=== PATIENT | male | born 1960 | race American Indian/Alaskan Native ===

== ENCOUNTER 2018-03-06 09:33 | Inpatient (IN) | payer MEDICAID ==
[2018-03-06] MEDS ORDERED: Naproxen 500 MG TAB PO STA (10:48)
[2018-03-06] MEDS ORDERED: Naproxen 500 MG TAB PO ONE (11:11)
[2018-03-06 11:50] LABS: BASO % 0.3 % (0.0-2.0); EOS # 0.1 K/uL (0.0-0.7); HEMOGLOBIN 12.2 g/dL (12.0-18.0); LYMPH # 1.2 K/uL (1.0-4.3); LYMPH % 28.2 % (20.0-40.0); MEAN CELL VOLUME 90.2 fl (80.0-94.0); MEAN CORPUSCULAR HEMOGLOBIN 29.1 pg (27.0-31.0); MEAN CORPUSCULAR HGB CONC 32.3 g/dL (33.0-37.0); MEAN PLATELET VOLUME 7.3 fl (7.2-11.7); MONO # 0.4 K/uL (0.0-0.8); MONO % 10.6 % (0.0-10.0); NEUT # 2.4 K/uL (1.8-7.0); NEUT % 57.9 % (50.0-75.0); RBC 4.18 Mil/uL (4.40-5.90); WHITE BLOOD COUNT 4.2 K/uL (4.8-10.8)
[2018-03-06 11:56] LABS: ALT/SGPT 54 U/L (21-72); AST/SGOT 58 U/L (17-59); BLOOD UREA NITROGEN 17 mg/dl (9-20); GFR NON-AFRICAN AMERICAN > 60
--- NOTE | 2018-03-06 12:21 | RAD ---
Date of service: 03/06/2018 HISTORY: Chest pressure COMPARISON: No prior. FINDINGS: LUNGS: No active pulmonary disease. PLEURA: No significant pleural effusion identified, no pneumothorax apparent. CARDIOVASCULAR: No atherosclerotic calcification present Normal. OSSEOUS STRUCTURES: No significant abnormalities. VISUALIZED UPPER ABDOMEN: Normal. OTHER FINDINGS: None. IMPRESSION: No active disease.
[2018-03-06 13:51] LABS: BENZODIAZEPINES, UR NEGATIVE (NEGATIVE); OPIATES, UR NEGATIVE (NEGATIVE)
[2018-03-06 13:52] LABS: BARBITURATES, UR NEGATIVE (NEGATIVE); PHENCYCLIDINE, UR NEGATIVE (NEGATIVE)
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
--- NOTE | 2018-03-06 16:19 | CARD ---
APPROVED REPORT Date of service: 03/06/2018 EKG Measurement Heart [id number] <Conclusion> Normal sinus rhythm Normal ECG
[2018-03-06] MEDS ORDERED: DiphenhydrAMINE 50 mg/ml Inj IM PRN (17:02)
[2018-03-06] MEDS ORDERED: Alum-Mag Hydrox-Simethicone Susp (30 mL) PO PRN (17:02)
[2018-03-06] MEDS ORDERED: Magnesium Hydroxide Susp 30 ml UD PO PRN (17:02)
--- NOTE | 2018-03-06 18:11 | PCM.BM ---
<Viviana Zapata - Last Filed: 03/06/18 18:08> Treatment Plan Problems - Problems identified on initial assessmt Medication nonadherence Date Initiated: 03/06/18 Time Initiated: 18:09 Assessment reference: HP, SW, NA Status: Active Auditory Hallucination Date Initiated: 03/06/18 Time Initiated: 18:10 Assessment reference: HP, SW, NA Status: Active Altered Thought Process Date Initiated: 03/06/18 Time Initiated: 18:12 Assessment reference: HP, SW, NA Status: Active Treatment assets and liabiliti Patient Assests: adapts well, cooperative (Patient is homeless), ADL independent (Patient is homeless) Patient Liabilities: financial problems, poor support system - Milieu Protocol Maintain good personal hygiene: daily Encourage regular showers, daily Remind patient to perform daily oral care, daily Assist patient to perform ADL's Conduct patient checks and document Observation sheet: Q15 minutes Maintain personal safety: every shift Educate patient to report safety concerns to staff, every shift Monitor environment for contraband/sharps Medication safety: Monitor for expected outcome, potential side effects: every shift, Assess barriers to learning: every shift, Assess readiness for medication education: every shift <Reanna Enriquez - Last Filed: 03/07/18 10:35> - Diagnosis (1) Schizophrenia Status: Acute Interventions: Medication management, Individual and group therapy, Psychoeducation 03/07/18 10:35 <Neeraj Rios - Last Filed: 03/08/18 15:27> Family Contact Family involvement: Famliy/SO not involved Family contact: Patient agrees to contact, Family has been contacted by patient, Telephone contact initiated by staff Family contact name: Pt denied. - Goals for Treatment Patient goals for treatment: Pt is too floridly psychotic to participate in treatment planning and discharge. Pt did ask to be referred to group homes as he is currently homeless. Discharge/Continuing Care - Education Needs Education Needs: Patient Medication, Patient Diagnosis/Disease Process, Patient Coping Skills, Patient Community resources, Patient Aftercare Safety Plan - Discharge Discharge Criteria: Tolerates medication w/o severe side effects, Free of paranoid thoughts, Free of agitation, Reduction of target symptoms Discharge to:: Detention - Treatment Team Participation Patient/Family/SO Statement: 03/08/18 15:19 Pt seen and evaluated in treatment team on 03/08/18. Pt presented as paranoid, tangential and disorganized. Pt was difficult to redirect and fixated on the size and shape of pills. Pt reported that his hallucinations have resolved. Pt also complained of pain in his legs and being cold on the unit. Up titration of Risperdal discussed and pt was in agreement. Discussed with Family/SO: No Was Patient/Family/SO present at Treatment Team Meeting: Yes
[2018-03-07 00:27] VITALS: O2SAT 95; BMI 38.7
[2018-03-07 06:18] LABS: BASO % 0.3 % (0.0-2.0); EOS # 0.1 K/uL (0.0-0.7); EOS % 3.3 % (0.0-4.0); HEMOGLOBIN 12.3 g/dL (12.0-18.0); LYMPH # 1.2 K/uL (1.0-4.3); LYMPH % 37.6 % (20.0-40.0); MEAN CELL VOLUME 91.6 fl (80.0-94.0); MEAN CORPUSCULAR HEMOGLOBIN 29.5 pg (27.0-31.0); MEAN CORPUSCULAR HGB CONC 32.2 g/dL (33.0-37.0); MEAN PLATELET VOLUME 7.3 fl (7.2-11.7); MONO # 0.4 K/uL (0.0-0.8); MONO % 12.6 % (0.0-10.0); NEUT # 1.5 K/uL (1.8-7.0); NEUT % 46.2 % (50.0-75.0); NRBC % 0.2 % (0.0-0.0); RBC 4.15 Mil/uL (4.40-5.90); RED CELL DISTRIBUTION WIDTH 15.5 % (11.5-14.5); WHITE BLOOD COUNT 3.2 K/uL (4.8-10.8)
[2018-03-07 06:26] LABS: ALB/GLOB RATIO 0.9 (1.0-2.1); ALBUMIN 3.4 g/dL (3.5-5.0); ALT/SGPT 47 U/L (21-72); AST/SGOT 39 U/L (17-59); BLOOD UREA NITROGEN 19 mg/dl (9-20); CALCIUM 8.6 mg/dL (8.4-10.2); GFR NON-AFRICAN AMERICAN > 60; HDL CHOLESTEROL 33 MG/DL (30-70)
[2018-03-07 06:36] LABS: LDL CHOLESTEROL 64 mg/dL (0-129)
[2018-03-07 06:40] LABS: T4 7.24 ug/dl (5.5-11.0)
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
[2018-03-07 11:27] LABS: SQUAMOUS EPITHIAL 1 /hpf (0-5); URINE BILIRUBIN NEGATIVE (NEGATIVE); URINE BLOOD NEGATIVE (NEGATIVE); URINE CLARITY SLIGHTY-CLOUDY (Clear); URINE COLOR YELLOW (YELLOW); URINE GLUCOSE (UA) NEG (Normal); URINE LEUKOCYTE ESTERASE NEG Leu/uL (Negative); URINE PROTEIN NEGATIVE (NEGATIVE)
[2018-03-07] MEDS: Risperidone M tab 1 MG PO SCH ×2 (11:44→21:13)
--- NOTE | 2018-03-07 14:21 | CP.PCM.CON ---
History of Present Illness - History of Present Illness History of Present Illness: Reason for Consult: Per hospital protocol HPI: 57 year old male with likely history of HTN? admitted to [facility] for schizophrenia, acutely disorganized and psychotic. Unable to obtain information from patient at this time. Discussed with Psychiatry team, and record reviewed. ROS: Per HPI, all other systems reviewed and neg Past Patient History - Past Social History Smoking Status: Light Smoker < 10 Cigarettes Daily - CARDIAC Hx Cardiac Disorders: Yes (HTN) - PULMONARY Hx Respiratory Disorders: No (denies) Hx Tuberculosis: No - NEUROLOGICAL HX Cerebrovascular Accident: No Hx Seizures: No Other/Comment: Pt. denies but states he had surgery to back of head. Does not know why had surgery. - HEENT Hx HEENT Problems: No (denied) - RENAL Hx Chronic Kidney Disease: No (Denied) - ENDOCRINE/METABOLIC Hx Endocrine Disorders: No (denied) - HEMATOLOGICAL/ONCOLOGICAL Hx Blood Disorders: No (denied) Hx Cancer: No Hx Human Immunodeficiency Virus (HIV): No - INTEGUMENTARY Hx Dermatological Problems: Yes Hx Cellulitis: Yes (Nicolás. lower extremities) - MUSCULOSKELETAL/RHEUMATOLOGICAL Hx Musculoskeletal Disorders: Yes (chronic leg, feet pain) - GASTROINTESTINAL Hx Gastrointestinal Disorders: No (denied) - GENITOURINARY/GYNECOLOGICAL Hx Genitourinary Disorders: No (denied) Hx Sexually Transmitted Disorders: No - PSYCHIATRIC Hx Schizophrenia: Yes Hx Substance Use: No - SURGICAL HISTORY Hx Surgeries: Yes Other/Comment: Brain surgery? Pt. states back of head surgery but doesnt know why. Eye surgery "think my right eye", doesnt know why. - ANESTHESIA Hx Anesthesia: Yes Hx Anesthesia Reactions: No Meds Allergies/Adverse Reactions: Allergies Allergy/AdvReac Type Severity Reaction Status Date / Time chlorpromazine Allergy PAIN Verified 03/06/18 10:35 [From Thorazine] olanzapine [From Zyprexa] Allergy PAIN Verified 03/06/18 10:34 ziprasidone [From Geodon] Allergy DIZZINESS Verified 03/06/18 10:34 - Medications Medications: Current Medications Acetaminophen (Tylenol 325mg Tab) 650 mg PO Q4 PRN PRN Reason: Pain, Mild (1-3) Al Hydrox/Mg Hydrox/Simethicone (Maalox Plus 30 Ml) 30 ml PO Q4 PRN PRN Reason: Dyspepsia Diphenhydramine HCl (Benadryl) 50 mg IM Q6 PRN PRN Reason: Extrapyramidal S/S Unable PO Diphenhydramine HCl (Benadryl) 50 mg PO Q6 PRN PRN Reason: Extrapyramidal Symptoms Diphenhydramine HCl (Benadryl) 50 mg PO HS PRN PRN Reason: Sleep Haloperidol (Haldol) 5 mg PO Q4 PRN PRN Reason: Agitation Haloperidol Lactate (Haldol) 5 mg IM Q4 PRN PRN Reason: Agitation, Unable to Take PO Lorazepam (Ativan) 2 mg IM Q4 PRN PRN Reason: Anxiety/Agitation,Unable PO Lorazepam (Ativan) 2 mg PO Q4 PRN PRN Reason: Anxiety/Agitation Magnesium Hydroxide (Milk Of Magnesia) 30 ml PO HS PRN PRN Reason: Constipation Nicotine (Nicoderm Cq) 1 patch TD DAILY [facility] Last Admin: 03/07/18 11:45 Dose: 1 patch Risperidone (Risperdal M-Tab) 1 mg PO Q12 [facility] Last Admin: 03/07/18 11:44 Dose: 1 mg Physical Exam - Constitutional Additional comments: GEN: WDWN, alert, cooperative HEENT: NCAT, PERRL, EOMI HEART: RRR, +S1S2, NO MRG LUNG: CTAB, NO WRR ABD: soft, NT, ND, No HSM, No masses EXT: normal pedal pulses NEURO: awake, alert SKIN: warm, dry PSYCH: normal mood, normal affect Results - Vital Signs Recent Vital Signs: Last Vital Signs Temp 97.2 F L 03/07/18 06:00 Pulse 62 03/07/18 06:00 Resp 19 03/07/18 06:00 BP 127/79 03/07/18 06:00 Pulse Ox 95 03/06/18 16:10 - Labs Result Diagrams: 03/07/18 05:30 03/07/18 05:30 Labs: Laboratory Results - last 24 hr 03/07/18 03/07/18 03/07/18 05:30 05:30 05:30 WBC 3.2 L RBC 4.15 L Hgb 12.3 Hct 38.1 MCV 91.6 MCH 29.5 MCHC 32.2 L RDW 15.5 H Plt Count 210 MPV 7.3 Neut % (Auto) 46.2 L Lymph % (Auto) 37.6 [place] % (Auto) 12.6 H Eos % (Auto) 3.3 Baso % (Auto) 0.3 Neut # (Auto) 1.5 L Lymph # (Auto) 1.2 [place] # (Auto) 0.4 Eos # (Auto) 0.1 Baso # (Auto) 0.0 Sodium 143 Potassium 4.2 Chloride 106 Carbon Dioxide 30 Anion Gap 11 BUN 19 Creatinine 0.9 Est GFR ( Amer) > 60 Est GFR (Non-Af Amer) > 60 Random Glucose 90 Hemoglobin A1c 5.6 Calcium 8.6 Total Bilirubin 0.6 AST 39 ALT 47 Alkaline Phosphatase 62 Total Protein 7.2 Albumin 3.4 L Globulin 3.8 Albumin/Globulin Ratio 0.9 L Triglycerides 58 Cholesterol 101 LDL Cholesterol Direct 64 HDL Cholesterol 33 Thyroxine (T4) 7.24 TSH 3rd Generation 0.30 L Urine Color Urine Clarity Urine pH Ur Specific [place] Urine Protein Urine Glucose (UA) Urine Ketones Urine Blood Urine Nitrate Urine Bilirubin Urine Urobilinogen Ur Leukocyte Esterase Urine Microscopic WBC Ur Squamous Epith Cells 03/07/18 10:59 WBC RBC Hgb Hct MCV MCH MCHC RDW Plt Count MPV Neut % (Auto) Lymph % (Auto) [place] % (Auto) Eos % (Auto) Baso % (Auto) Neut # (Auto) Lymph # (Auto) [place] # (Auto) Eos # (Auto) Baso # (Auto) Sodium Potassium Chloride Carbon Dioxide Anion Gap BUN Creatinine Est GFR ( Amer) Est GFR (Non-Af Amer) Random Glucose Hemoglobin A1c Calcium Total Bilirubin AST ALT Alkaline Phosphatase Total Protein Albumin Globulin Albumin/Globulin Ratio Triglycerides Cholesterol LDL Cholesterol Direct HDL Cholesterol Thyroxine (T4) TSH 3rd Generation Urine Color Yellow Urine Clarity Slighty-cloudy Urine pH 7.0 Ur Specific [place] 1.026 Urine Protein Negative Urine Glucose (UA) Neg Urine Ketones Negative Urine Blood Negative Urine Nitrate Negative Urine Bilirubin Negative Urine Urobilinogen 4.0 Ur Leukocyte Esterase Neg Urine Microscopic WBC < 1 Ur Squamous Epith Cells 1 Assessment & Plan - Assessment and Plan (Free Text) Assessment: 57 year old male with likely history of HTN? admitted to [facility] for schizophr enia, acutely disorganized and psychotic. Unable to obtain information from patient at this time. Discussed with Psychiatry team, and record reviewed. Plan: HTN - start patient on Cozaar 25 mg po daily - monitor BP Schizophrenia - mgmt per psych
[2018-03-08] MEDS: Risperidone M tab 1 MG PO SCH (08:30)
--- NOTE | 2018-03-08 11:08 | PCM.PYCHPN ---
Psychiatric Progress Note - Psychiatric Progress Note Patient seen today, length of contact: Pt evaluated, case discussed w/ team, chart reviewed Patient Chief Complaint: "I need my medications." Problems Identified/Issues Discussed: Pt continues to be disorganized, tangential, w/ flight of ideas and various delusions including that his skin and his entire were changed and his brain is actually his. We discussed continued titration of Risperdal. He seems very foc used on what color the pills are. No adverse effects to medications reported. NO AH/VH/SI/HI. Medication Change: Yes (Increase Risperdal) Medical Record Reviewed: Yes Consults ordered or reviewed: Medicine consult Mental Status Examination - Cognitive Function Orientation: Person, Place, Situation, Time Attention: Poor Concentration: Poor Association: Loose Fund of Knowledge: Poor Decription of patient's judgement and insights: Poor I/J - Mood Mood: Neutral - Affect Affect: Broad - Formal Thought Process Formal Thought Process: Delusions, Paranoia, Loosening of associations, Flight of ideas Psychotic Thoughts and Behaviors: +Various delusions - Suicidal Ideation Suicidal Ideation: No - Homicidal Ideation Homicidal Ideation: No Goal/Treatment Plan - Goal/Treatment Plan Need for Continued Stay: Remain at risks for inpatient hospitalization, Discharge may exacerbated symptoms, Severe functional impairment Progress Toward Problem(s) and Goals/Treatment Plan: Schizophrenia -Individual and group therapy -Psychoeducation -Increase Risperdal -Medicine consult appreciated -Nicotine patch -Disposition planning Estimated Date of D/C: 03/14/18 - Smoking Cessation Smoking Cessation Initiated: Yes
[2018-03-08] MEDS: Risperidone M TAB 2 MG PO SCH (21:04)
--- NOTE | 2018-03-09 09:09 | PCM.PYCHPN ---
Psychiatric Progress Note - Psychiatric Progress Note Patient seen today, length of contact: Pt evaluated, case discussed w/ team, chart reviewed Patient Chief Complaint: "I need my medications." Problems Identified/Issues Discussed: No new events overnight. Pt continues to be disorganized, tangential, w/ flight of ideas and various delusions. We discussed continued titration of Risperdal. No adverse effects to medications reported. NO AH/VH/SI/HI. Medication Change: Yes (Increase Risperdal) Medical Record Reviewed: Yes Consults ordered or reviewed: Medicine consult Mental Status Examination - Cognitive Function Orientation: Person, Place, Situation, Time Attention: Poor Concentration: Poor Association: Loose Fund of Knowledge: Poor Decription of patient's judgement and insights: Poor I/J - Mood Mood: Neutral - Affect Affect: Broad - Formal Thought Process Formal Thought Process: Delusions, Paranoia, Loosening of associations, Flight of ideas Psychotic Thoughts and Behaviors: +Various delusions - Suicidal Ideation Suicidal Ideation: No - Homicidal Ideation Homicidal Ideation: No Goal/Treatment Plan - Goal/Treatment Plan Need for Continued Stay: Remain at risks for inpatient hospitalization, Discharge may exacerbated symptoms, Severe functional impairment Progress Toward Problem(s) and Goals/Treatment Plan: Schizophrenia -Individual and group therapy -Psychoeducation -Increase Risperdal -Medicine consult appreciated -Nicotine patch -Disposition planning Estimated Date of D/C: 03/14/18
[2018-03-09] MEDS: Risperidone M TAB 2 MG PO SCH ×2 (10:00→21:11)
[2018-03-10] MEDS: Risperidone M TAB 2 MG PO SCH (08:58)
--- NOTE | 2018-03-10 09:58 | PCM.PYCHPN ---
Psychiatric Progress Note - Psychiatric Progress Note Patient seen today, length of contact: Pt evaluated, case discussed w/ team, chart reviewed Patient Chief Complaint: "I need my medications." Problems Identified/Issues Discussed: Patient submitted a 48 hr letter requesting to be discharged, was screened by [facility] and not accepted. Patient retracted the 48 hr letter and is agreeable to continued inpatient hospitalization. He continues to be disorganized, tange ntial, w/ flight of ideas and various delusions. No adverse effects to medications reported. NO AH/VH/SI/HI. Medication Change: Yes (Increase Risperdal) Medical Record Reviewed: Yes Consults ordered or reviewed: Medicine consult Mental Status Examination - Cognitive Function Orientation: Person, Place, Situation, Time Attention: Poor Concentration: Poor Association: Loose Fund of Knowledge: Poor Decription of patient's judgement and insights: Poor I/J - Mood Mood: Neutral - Affect Affect: Broad - Formal Thought Process Formal Thought Process: Delusions, Paranoia, Loosening of associations, Flight of ideas Psychotic Thoughts and Behaviors: +Various delusions - Suicidal Ideation Suicidal Ideation: No - Homicidal Ideation Homicidal Ideation: No Goal/Treatment Plan - Goal/Treatment Plan Need for Continued Stay: Remain at risks for inpatient hospitalization, Discharge may exacerbated symptoms, Severe functional impairment Progress Toward Problem(s) and Goals/Treatment Plan: Schizophrenia -Individual and group therapy -Psychoeducation -Increase Risperdal -Medicine consult appreciated -Nicotine patch -Disposition planning Estimated Date of D/C: 03/13/18
--- NOTE | 2018-03-11 08:28 | PCM.PYCHPN ---
Psychiatric Progress Note - Psychiatric Progress Note Patient seen today, length of contact: Pt evaluated, case discussed w/ team, chart reviewed Patient Chief Complaint: "I need my medications." Problems Identified/Issues Discussed: Patient continues to be delusional, disorganized, tangential but has less pressured speech. No adverse effects to medications reported. NO AH/VH/SI/HI. Medication Change: Yes (Increase Risperdal) Medical Record Reviewed: Yes Consults ordered or reviewed: Medicine consult Mental Status Examination - Cognitive Function Orientation: Person, Place, Situation, Time Attention: Poor Concentration: Poor Association: Loose Fund of Knowledge: Poor Decription of patient's judgement and insights: Poor I/J - Mood Mood: Neutral - Affect Affect: Broad - Formal Thought Process Formal Thought Process: Delusions, Paranoia, Loosening of associations, Flight o f ideas Psychotic Thoughts and Behaviors: +Various delusions - Suicidal Ideation Suicidal Ideation: No - Homicidal Ideation Homicidal Ideation: No Goal/Treatment Plan - Goal/Treatment Plan Need for Continued Stay: Remain at risks for inpatient hospitalization, Discharge may exacerbated symptoms, Severe functional impairment Progress Toward Problem(s) and Goals/Treatment Plan: Schizophrenia -Individual and group therapy -Psychoeducation -Increase Risperdal -Medicine consult appreciated -Nicotine patch -Disposition planning Estimated Date of D/C: 03/14/18
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
[2018-03-15] MEDS: Ammonium Lactate 12% Cream (140 g) TOP SCH ×2 (16:15→16:16)
--- NOTE | 2018-03-16 07:40 | PCM.BM ---
Treatment Plan Problems - Problems identified on initial assessmt Medication nonadherence Date Initiated: 03/06/18 Time Initiated: 18:09 Assessment reference: HP, SW, NA Status: Active Auditory Hallucination Date Initiated: 03/06/18 Time Initiated: 18:10 Assessment reference: HP, SW, NA Status: Active Altered Thought Process Date Initiated: 03/06/18 Time Initiated: 18:12 Assessment reference: HP, SW, NA Status: Active Treatment assets and liabiliti Patient Assests: adapts well, cooperative (Patient is homeless), ADL independent (Patient is homeless) Patient Liabilities: financial problems, poor support system - Milieu Protocol Maintain good personal hygiene: daily Encourage regular showers, daily Remind patient to perform daily oral care, daily Assist patient to perform ADL's Conduct patient checks and document Observation sheet: Q15 minutes Maintain personal safety: every shift Educate patient to report safety concerns to staff, every shift Monitor environment for contraband/sharps Medication safety: Monitor for expected outcome, potential side effects: every shift, Assess barriers to learning: every shift, Assess readiness for medication education: every shift Milieu Narrative: Schizophrenia -Individual and group therapy -Psychoeducation -Increase Risperdal -Medicine consult appreciated -Nicotine patch -Disposition planning Family Contact Family involvement: Famliy/SO not involved Family contact: Patient agrees to contact, Family has been contacted by patient, Telephone contact initiated by staff Family contact name: Pt denied. - Goals for Treatment Patient goals for treatment: Pt is too floridly psychotic to participate in treatment planning and discharge. Pt did ask to be referred to group [facility] as he is currently homeless. Discharge/Continuing Care - Education Needs Education Needs: Patient Medication, Patient Diagnosis/Disease Process, Patient Coping Skills, Patient Community resources, Patient Aftercare Safety Plan - Discharge Discharge Criteria: Tolerates medication w/o severe side effects, Free of paranoid thoughts, Free of agitation, Reduction of target symptoms Discharge to:: Senior Living - Treatment Team Participation Patient/Family/SO Statement: Schizophrenia -Individual and group therapy -Psychoeducation -Increase Risperdal -Medicine consult appreciated -Nicotine patch -Disposition planning Discussed with Family/SO: No Was Patient/Family/SO present at Treatment Team Meeting: Yes Treatment Plan Review - Problem Medication nonadherence Time Initiated: 18:09 Auditory Hallucination Time Initiated: 18:10 Altered Thought Process Time Initiated: 18:12 - Discharge / Continuing Care Discharge to:: [facility]: Intensive Outpatient Health Needs: Follow up care/test, Medications/Rx, Other (Staff continued to express to pt that due to his disorganized and delusionsal thoughts they do not recommend that pt leave the unit. Pt expressed feeling stable, and conrtinues to have severely impaired inisght and judgement. Pt is unable to make a detailed plan for what he would do on a daily basis if he was discharged as he is not from the area and not familiar with his surroundings. He has unrealistic expectations about finding housing and other basic needs of living. Pt reported that he knows the president and just found out that he has wealthy adoptive parents. Pt signed tx team note by writing "Abopted" above as his name as he does not believe this is his real name. )
--- NOTE | 2018-03-16 08:03 | PCM.PYCHPN ---
Psychiatric Progress Note - Psychiatric Progress Note Patient seen today, length of contact: Pt evaluated, case discussed w/ team, chart reviewed Patient Chief Complaint: "I need my medications." Problems Identified/Issues Discussed: No new events. Patient continues to be delusional (various delusions including being born in various hospitals, persecutory delusions, having his skin and blood changed), disorganized and tangential. No adverse effects to medications reported. NO AH/VH/SI/HI. Medication Change: No Medical Record Reviewed: Yes Consults ordered or reviewed: Medicine consult Mental Status Examination - Cognitive Function Orientation: Person, Place, Situation, Time Attention: Poor Concentration: Poor Association: Loose Fund of Knowledge: Poor Decription of patient's judgement and insights: Poor I/J - Mood Mood: Neutral - Affect Affect: Broad - Formal Thought Process Formal Thought Process: Delusions, Paranoia, Loosening of associations, Flight of ideas Psychotic Thoughts and Behaviors: +Various delusions - Suicidal Ideation Suicidal Ideation: No - Homicidal Ideation Homicidal Ideation: No Goal/Treatment Plan - Goal/Treatment Plan Need for Continued Stay: Remain at risks for inpatient hospitalization, Discharge may exacerbated symptoms, Severe functional impairment Progress Toward Problem(s) and Goals/Treatment Plan: Schizophrenia -Individual and group therapy -Psychoeducation -Continue Risperdal -Medicine consult appreciated -Nicotine patch -Disposition planning Estimated Date of D/C: 03/22/18
[2018-03-16] MEDS: Ammonium Lactate 12% Cream (140 g) TOP SCH (08:57)
[2018-03-17] MEDS: Ammonium Lactate 12% Cream (140 g) TOP SCH (08:35)
--- NOTE | 2018-03-17 08:56 | PCM.PYCHPN ---
Psychiatric Progress Note - Psychiatric Progress Note Patient seen today, length of contact: Pt evaluated, case discussed w/ team, chart reviewed Patient Chief Complaint: "I need my medications." Problems Identified/Issues Discussed: Patient continues to be delusional (various delusions including being born in various hospitals, persecutory delusions, having his skin and blood changed), disorganized, flight of ideas and tangential. No adverse effects to medications reported. NO AH/VH/SI/HI. Medication Change: No Medical Record Reviewed: Yes Consults ordered or reviewed: Medicine consult Mental Status Examination - Cognitive Function Orientation: Person, Place, Situation, Time Attention: Poor Concentration: Poor Association: Loose Fund of Knowledge: Poor Decription of patient's judgement and insights: Poor I/J - Mood Mood: Neutral - Affect Affect: Broad - Formal Thought Process Formal Thought Process: Delusions, Paranoia, Loosening of associations, Flight of ideas Psychotic Thoughts and Behaviors: +Various delusions - Suicidal Ideation Suicidal Ideation: No - Homicidal Ideation Homicidal Ideation: No Goal/Treatment Plan - Goal/Treatment Plan Need for Continued Stay: Remain at risks for inpatient hospitalization, Discharge may exacerbated symptoms, Severe functional impairment Progress Toward Problem(s) and Goals/Treatment Plan: Schizophrenia -Individual and group therapy -Psychoeducation -Continue Risperdal -Medicine consult appreciated -Nicotine patch -Disposition planning Estimated Date of D/C: 03/22/18
--- NOTE | 2018-03-17 12:56 | US ---
Date of service: 03/17/2018 PROCEDURE: Bilateral lower extremity venous duplex Doppler. HISTORY: Bilateral leg swelling COMPARISON: None available. TECHNIQUE: Bilateral common femoral, superficial femoral, popliteal and posterior tibial veins were evaluated. Flow was assessed with color Doppler, compressibility, assessment of phasic flow and augmentation response. FINDINGS: COMMON FEMORAL VEIN: Right CFV: Unremarkable. Left CFV: Unremarkable. SUPERFICIAL FEMORAL VEIN: Right SFV: Unremarkable. Left SFV: Unremarkable. POPLITEAL VEIN: Right Popliteal: Unremarkable. Left Popliteal: Unremarkable. POSTERIOR TIBIAL VEIN: Right PTV: Unremarkable. Left PTV: Unremarkable. OTHER FINDINGS: Subcutaneous edema is seen overlying the bilateral calves and ankles. Further, bilateral inguinal lymphadenopathy is appreciated including a right 3.5 x 1.3 cm right inguinal lymph node and dominant left inguinal lymph node measuring 2.7 x 1.4 cm. IMPRESSION: No sonographic evidence of deep venous thrombosis. Incidental moderate bilateral inguinal lymphadenopathy.
[2018-03-17] MEDS: Divalproex 500 mg ER (ONCE DAILY formulation) PO SCH (21:04)
[2018-03-18] MEDS: Ammonium Lactate 12% Cream (140 g) TOP SCH ×2 (08:47→17:31)
--- NOTE | 2018-03-18 13:02 | PCM.PYCHPN ---
Psychiatric Progress Note - Psychiatric Progress Note Patient seen today, length of contact: Pt evaluated, case discussed w/ team, chart reviewed Patient Chief Complaint: pt seen tv room appears to be talking to tv reports that he was adopted and the recent of present beka was of father (believes present who resently (president beka 1), staff reports pt has been noted to be speaking to self, reportedly he is adopted has another name other than nessa name) Problems Identified/Issues Discussed: alteration in cognition alteration in self care alteration in skin integrity Medical Problems: per chart Diagnostic Results: pt chart cracked, dry skin foot/heels per chart DSM 5 Symptoms Update: alteration in cognition delusions hallucination/paranoia Medication Change: No Medical Record Reviewed: Yes Consults ordered or reviewed: hospitalist podiatry Mental Status Examination - Cognitive Function Orientation: Person, Place, Situation, Time Attention: Poor Concentration: Poor Association: Loose Fund of Knowledge: Poor Decription of patient's judgement and insights: impaired - Mood Mood: Neutral - Affect Affect: Broad - Formal Thought Process Formal Thought Process: Delusions, Paranoia, Loosening of associations, Flight of ideas - Suicidal Ideation Suicidal Ideation: No - Homicidal Ideation Homicidal Ideation: No Goal/Treatment Plan - Goal/Treatment Plan Need for Continued Stay: Remain at risks for inpatient hospitalization, D ischarge may exacerbated symptoms, Severe functional impairment Progress Toward Problem(s) and Goals/Treatment Plan: inpt milieu adjust meds per clinical podiatry consult feet pt receiving risperdal and vpa-will monitor levels and adjust per clinical status discharge planning per status Estimated Date of D/C: 03/22/18 - Smoking Cessation Smoking Cessation Initiated: No Reason for not providing: deferred
--- NOTE | 2018-03-18 17:01 | CP.PCM.CON ---
History of Present Illness - History of Present Illness History of Present Illness: Podiatry - Dr. Soto 57M seen and evaluated regarding pain in right heels. Patient complains of dry, flaky feet which has resulted in cracked heels. Patient states he was started on ammonium lactate lotion a few days ago which has helped with the discomfort. States he is able to ambulate w/o issues. Denies n/v/f/d/c/sob. No other complaints. Review of Systems - Review of Systems All systems: reviewed and no additional remarkable complaints except (as per HPI) Past Patient History - Past Social History Smoking Status: Light Smoker < 10 Cigarettes Daily - CARDIAC Hx Cardiac Disorders: Yes (HTN) - PULMONARY Hx Respiratory Disorders: No (denies) Hx Tuberculosis: No - NEUROLOGICAL HX Cerebrovascular Accident: No Hx Seizures: No Other/Comment: Pt. denies but states he had surgery to back of head. Does not know why had surgery. - HEENT Hx HEENT Problems: No (denied) - RENAL Hx Chronic Kidney Disease: No (Denied) - ENDOCRINE/METABOLIC Hx Endocrine Disorders: No (denied) - HEMATOLOGICAL/ONCOLOGICAL Hx Blood Disorders: No (denied) Hx Cancer: No Hx Human Immunodeficiency Virus (HIV): No - INTEGUMENTARY Hx Dermatological Problems: Yes Hx Cellulitis: Yes (Nicolás. lower extremities) - MUSCULOSKELETAL/RHEUMATOLOGICAL Hx Musculoskeletal Disorders: Yes (chronic leg, feet pain) - GASTROINTESTINAL Hx Gastrointestinal Disorders: No (denied) - GENITOURINARY/GYNECOLOGICAL Hx Genitourinary Disorders: No (denied) Hx Sexually Transmitted Disorders: No - PSYCHIATRIC Hx Schizophrenia: Yes Hx Substance Use: No - SURGICAL HISTORY Hx Surgeries: Yes Other/Comment: Brain surgery? Pt. states back of head surgery but doesnt know why. Eye surgery "think my right eye", doesnt know why. - ANESTHESIA Hx Anesthesia: Yes Hx Anesthesia Reactions: No Meds Allergies/Adverse Reactions: Allergies Allergy/AdvReac Type Severity Reaction Status Date / Time chlorpromazine Allergy PAIN Verified 03/06/18 10:35 [From Thorazine] olanzapine [From Zyprexa] Allergy PAIN Verified 03/06/18 10:34 ziprasidone [From Geodon] Allergy DIZZINESS Verified 03/06/18 10:34 - Medications Medications: Current Medications Acetaminophen (Tylenol 325mg Tab) 650 mg PO Q4 PRN PRN Reason: Pain, Mild (1-3) Last Admin: 03/07/18 21:13 Dose: 650 mg Al Hydrox/Mg Hydrox/Simethicone (Maalox Plus 30 Ml) 30 ml PO Q4 PRN PRN Reason: Dyspepsia Benztropine Mesylate (Cogentin) 0.5 mg PO Q12 PRN PRN Reason: Extrapyramidal symptoms Diphenhydramine HCl (Benadryl) 50 mg IM Q6 PRN PRN Reason: Extrapyramidal S/S Unable PO Diphenhydramine HCl (Benadryl) 50 mg PO Q6 PRN PRN Reason: Extrapyramidal Symptoms Diphenhydramine HCl (Benadryl) 50 mg PO HS PRN PRN Reason: Sleep Last Admin: 03/09/18 22:24 Dose: 50 mg Divalproex Sodium (Depakote Er(Once Daily)) 500 mg PO HS [facility] Last Admin: 03/17/18 21:04 Dose: 500 mg Furosemide (Lasix) 40 mg PO DAILY [facility] Last Admin: 03/18/18 08:48 Dose: 40 mg Haloperidol (Haldol) 5 mg PO Q4 PRN PRN Reason: Agitation Last Admin: 03/09/18 22:24 Dose: 5 mg Haloperidol Lactate (Haldol) 5 mg IM Q4 PRN PRN Reason: Agitation, Unable to Take PO Lactic Acid (Lac-Hydrin 12% Cream (140 G)) 1 ea TOP DAILY [facility] Last Admin: 03/18/18 08:47 Dose: 1 applic Lorazepam (Ativan) 2 mg IM Q4 PRN PRN Reason: Anxiety/Agitation,Unable PO Lorazepam (Ativan) 2 mg PO Q4 PRN PRN Reason: Anxiety/Agitation Losartan Potassium (Cozaar) 50 mg PO DAILY [facility] Last Admin: 03/18/18 08:49 Dose: 50 mg Magnesium Hydroxide (Milk Of Magnesia) 30 ml PO HS PRN PRN Reason: Constipation Nicotine (Nicoderm Cq) 1 patch TD DAILY [facility] Last Admin: 03/18/18 08:49 Dose: 1 patch Risperidone (Risperdal Tab) 4 mg PO Q12 [facility] Last Admin: 03/18/18 08:49 Dose: 4 mg Physical Exam - Constitutional Appears: Well, Non-toxic, No Acute Distress - Extremities Exam Additional comments: VASC: DP and PT pulses palpable 2/4. CFT <3 seconds to all digits. +1 pitting edema noted to bilateral LE. NEURO: Gross sensation intact bilaterally. DERM: Severe xerosis noted to plantar foot with fissuring along plantar heel b/l - stable, non-infected. ORTHO: Tenderness to palpation heel fissures b/l. - Neurological Exam Neurological exam: Alert, Oriented x3 - Psychiatric Exam Psychiatric exam: Normal Affect, Normal Mood Results - Vital Signs Recent Vital Signs: Last Vital Signs Temp 97.3 F L 03/18/18 06:00 Pulse 69 03/18/18 08:49 Resp 18 03/18/18 06:00 BP 121/69 03/18/18 08:49 Pulse Ox 95 03/06/18 16:10 - Labs Result Diagrams: 03/07/18 05:30 03/07/18 05:30 Assessment & Plan - Assessment and Plan (Free Text) Assessment: 57M with severe xerosis, stable Plan: Patient seen and evaluated Discussed with attending, Dr. Soto Fissures appear stable - recommend ammoium lactate to feet TID Stable from podiatry standpoint Podiatry will sign off at this time, please reconsult if new issues arise
[2018-03-18] MEDS: Divalproex 500 mg ER (ONCE DAILY formulation) PO SCH (21:10)
[2018-03-19] MEDS: Ammonium Lactate 12% Cream (140 g) TOP SCH ×3 (08:43→21:04)
--- NOTE | 2018-03-19 15:45 | PCM.PYCHPN ---
Psychiatric Progress Note - Psychiatric Progress Note Patient seen today, length of contact: Pt evaluated, case discussed w/ team, chart reviewed Patient Chief Complaint: staff report pt remains delusional, has been adherent with treatment, somewhat isolative, 4pt seen tv room appears to be talking to tv reports that he was adopted and the recent of present beka was of father (believes present who resently (president beka 1), staff reports pt has been noted to be speaking to self, reportedly he is adopted has another name other than nessa name) Problems Identified/Issues Discussed: alteration in cognition alteration in self care alteration in skin integrity Medical Problems: per chart Diagnostic Results: pt chart cracked, dry skin foot/heels per chart DSM 5 Symptoms Update: alteration in delusion/cognition Medication Change: No Medical Record Reviewed: Yes Consults ordered or reviewed: pt seen by hospitalist Mental Status Examination - Cognitive Function Orientation: Person, Place, Situation, Time Attention: Poor Concentration: Poor Association: Loose Fund of Knowledge: Poor Decription of patient's judgement and insights: impaired - Mood Mood: Neutral - Affect Affect: Broad - Formal Thought Process Formal Thought Process: Delusions, Paranoia, Loosening of associations, Flight of ideas - Suicidal Ideation Suicidal Ideation: No - Homicidal Ideation Homicidal Ideation: No Goal/Treatment Plan - Goal/Treatment Plan Need for Continued Stay: Remain at risks for inpatient hospitalization, Discharge may exacerbated symptoms, Severe functional impairment Progress Toward Problem(s) and Goals/Treatment Plan: inpt milieu adjust meds per clinical podiatry consult feet pt receiving risperdal and vpa-will monitor levels and adjust per clinical status discharge planning per status Estimated Date of D/C: 03/22/18 - Smoking Cessation Smoking Cessation Initiated: No Reason for not providing: pt defers
[2018-03-19] MEDS: Divalproex 500 mg ER (ONCE DAILY formulation) PO SCH (21:03)
[2018-03-20] MEDS: Ammonium Lactate 12% Cream (140 g) TOP SCH ×3 (08:21→16:23)
--- NOTE | 2018-03-20 08:59 | PCM.PYCHPN ---
Psychiatric Progress Note - Psychiatric Progress Note Patient seen today, length of contact: Pt evaluated, case discussed w/ team, chart reviewed Patient Chief Complaint: "I want to leave." Problems Identified/Issues Discussed: Patient continues to be delusional (various delusions including being born in various hospitals, persecutory delusions, having his skin and blood changed), disorganized, flight of ideas and tangential. He has been observed talking to himself and talking directly to the TV. No adverse effects to medications reported. Patient submitted a 48 hr letter requesting to be discharged from the hospital. Investor Relations Director informed patient that he will be screened for involuntary psychiatric admission due to continued psychosis. Medication Change: No Medical Record Reviewed: Yes Consults ordered or reviewed: Medicine consult Mental Status Examination - Cognitive Function Orientation: Person, Place, Situation, Time Attention: Poor Concentration: Poor Association: Loose Fund of Knowledge: Poor Decription of patient's judgement and insights: Poor I/J - Mood Mood: Neutral - Affect Affect: Broad - Formal Thought Process Formal Thought Process: Delusions, Paranoia, Loosening of associations, Flight of ideas Psychotic Thoughts and Behaviors: +Various delusions, +Internal preoccupation - Suicidal Ideation Suicidal Ideation: No - Homicidal Ideation Homicidal Ideation: No Goal/Treatment Plan - Goal/Treatment Plan Need for Continued Stay: Remain at risks for inpatient hospitalization, Discharge may exacerbated symptoms, Severe functional impairment Progress Toward Problem(s) and Goals/Treatment Plan: Schizophrenia r/o schizoaffective disorder -Individual and group therapy -Psychoeducation -Continue Risperdal and Depakote -Medicine consult appreciated -Nicotine patch -Screen for involuntary psychiatric admission Estimated Date of D/C: 03/21/18
[2018-03-20 12:17] LABS: HEMOGLOBIN 12.6 g/dL (12.0-18.0); MEAN CELL VOLUME 89.6 fl (80.0-94.0); MEAN CORPUSCULAR HEMOGLOBIN 29.3 pg (27.0-31.0); MEAN CORPUSCULAR HGB CONC 32.7 g/dL (33.0-37.0); RBC 4.31 Mil/uL (4.40-5.90); RED CELL DISTRIBUTION WIDTH 15.1 % (11.5-14.5); WHITE BLOOD COUNT 3.1 K/uL (4.8-10.8)
[2018-03-20 12:23] LABS: ALB/GLOB RATIO 0.9 (1.0-2.1); ALBUMIN 3.8 g/dL (3.5-5.0); ALT/SGPT 43 U/L (21-72); AST/SGOT 36 U/L (17-59); BLOOD UREA NITROGEN 17 mg/dl (9-20); GFR NON-AFRICAN AMERICAN > 60
[2018-03-20 14:25] LABS: SQUAMOUS EPITHIAL 1 /hpf (0-5); URINE BILIRUBIN NEGATIVE (NEGATIVE); URINE BLOOD NEGATIVE (NEGATIVE); URINE CLARITY CLEAR (Clear); URINE COLOR STRAW (YELLOW); URINE GLUCOSE (UA) NEG (Normal); URINE LEUKOCYTE ESTERASE NEG Leu/uL (Negative); URINE PROTEIN NEGATIVE (NEGATIVE); URINE UROBILINOGEN 0.2-1.0 mg/dL (0.2-1.0)
[2018-03-20] MEDS: Divalproex 500 mg ER (ONCE DAILY formulation) PO SCH (21:07)
[2018-03-21] MEDS: Ammonium Lactate 12% Cream (140 g) TOP SCH ×3 (08:17→16:24)
--- NOTE | 2018-03-21 08:37 | PCM.PYCHPN ---
Psychiatric Progress Note - Psychiatric Progress Note Patient seen today, length of contact: Pt evaluated, case discussed w/ team, chart reviewed Patient Chief Complaint: Pending transfer [place] [facility] for [place] psychiatric commitment Problems Identified/Issues Discussed: Pt was screened by [facility] and accept for involuntary psychiatric admission, pending bed and transfer. Patient continues to be delusional (various delusions including being born in various hospitals, persecutory delusions, having his skin and blood changed), disorganized, flight of ideas and tangential. He has been observed talking to himself and talking directly to the TV. No adverse effects to medications reported. Medication Change: No Medical Record Reviewed: Yes Consults ordered or reviewed: Medicine consult Mental Status Examination - Cognitive Function Orientation: Person, Place, Situation, Time Attention: Poor Concentration: Poor Association: Loose Fund of Knowledge: Poor Decription of patient's judgement and insights: Poor I/J - Mood Mood: Neutral - Affect Affect: Broad - Formal Thought Process Formal Thought Process: Delusions, Paranoia, Loosening of associations, Flight of ideas Psychotic Thoughts and Behaviors: +Various delusions, +Internal preoccupation - Suicidal Ideation Suicidal Ideation: No - Homicidal Ideation Homicidal Ideation: No Goal/Treatment Plan - Goal/Treatment Plan Need for Continued Stay: Remain at risks for inpatient hospitalization, Discharge may exacerbated symptoms, Severe functional impairment Progress Toward Problem(s) and Goals/Treatment Plan: Schizophrenia r/o schizoaffective disorder -Individual and group therapy -Psychoeducation -Continue Risperdal and Depakote -Medicine consult appreciated -Nicotine patch -Transfer to [facility] when bed is available - Smoking Cessation Smoking Cessation Initiated: Yes
[2018-03-21] MEDS: Divalproex 500 mg ER (ONCE DAILY formulation) PO SCH (21:07)
[2018-03-22] MEDS: Ammonium Lactate 12% Cream (140 g) TOP SCH ×2 (08:30→13:10)
--- NOTE | 2018-03-22 08:42 | PCM.PYCHPN ---
Psychiatric Progress Note - Psychiatric Progress Note Patient seen today, length of contact: Pt evaluated, case discussed w/ team, chart reviewed Patient Chief Complaint: Pending transfer to [facility] for involuntary psychiatric commitment Problems Identified/Issues Discussed: Pt was screened by [facility] and accept for involuntary psychiatric admission, pending bed and transfer. Patient continues to be delusional (various delusions including being born in various hospitals, persecutory delusions, having his skin and blood changed), disorganized, flight of ideas and tangential. He has been observed talking to himself and talking directly to the TV. No adverse effects to medications reported. Medication Change: No Medical Record Reviewed: Yes Consults ordered or reviewed: Medicine consult Mental Status Examination - Cognitive Function Orientation: Person, Place, Situation, Time Attention: Poor Concentration: Poor Association: Loose Fund of Knowledge: Poor Decription of patient's judgement and insights: Poor I/J - Mood Mood: Neutral - Affect Affect: Broad - Formal Thought Process Formal Thought Process: Delusions, Paranoia, Loosening of associations, Flight of ideas Psychotic Thoughts and Behaviors: +Various delusions, +Internal preoccupation - Suicidal Ideation Suicidal Ideation: No - Homicidal Ideation Homicidal Ideation: No Goal/Treatment Plan - Goal/Treatment Plan Need for Continued Stay: Remain at risks for inpatient hospitalization, Discharge may exacerbated symptoms, Severe functional impairment Progress Toward Problem(s) and Goals/Treatment Plan: Schizophrenia r/o schizoaffective disorder -Individual and group therapy -Psychoeducation -Continue Risperdal and Depakote -Medicine consult appreciated -Nicotine patch -Transfer to [facility] when bed is available
--- NOTE | 2018-03-22 10:00 | PCM.PYCHDC ---
Mental Status Examination - Mental Status Examination Orientation: Person, Place, Situation, Time Memory: Impaired Mood: Neutral Affect: Broad Speech: Appropriate Attention: Poor Concentration: Poor Association: Loose Fund of Knowledge: Poor Formal Thought Process: Delusions, Paranoia, Loosening of associations, Flight of ideas Description of patient's judgement and insight: Poor I/J Psychotic Thoughts and Behaviors: +Various delusions, +Internal preoccupation Suicidal Ideation: No Current Homicidal Ideation?: No Discharge Summary - Discharge Note Reason for Hospitalization: Patient is a poor historian due to acute psychosis and disorganization HPI: 57 yo male w/ h/o schizophrenia presents acutely disorganized, psychotic, paranoid w/ various delusions, including that rapists want to attack him, delusions of mistaken identity, delusion that someone changed his blood, being kidnapped as a child and that "AIDS can get in your urine". +Active AH yelling random names; denies CAH. Denies VH. Denies depression/SI/HI. PPHx: History of schizophrenia and most recently treated w/ Risperdal (up to 6 mg), which he states he visits various emergency rooms to try to obtain. No current psychiatric treatment or follow-up. PMHx: HTN; lower extremity edema ALL: Chlorpromazine, Olanzapine, Ziprasidone SHx: Homeless, unemployed, denies drugs/etoh; smokes less than 1/3 pack per day Consultations:: List each consultation separately and include: 1. Reason for request. 2. Findings. 3. Follow-up Consultations: Medicine consult Summary of Hospital Course include:: 1. Description of specific treatment plan utilized for patients during their course of treatmen. 2. Summarize the time- course for resolution of acute symptoms and/or regressed behaviors. 3. Describe issues identified and worked on during hospitalization. 4. Describe medication utilized. 5. Describe medical problems identified and treated. 6. Reassessment of suicide risk Summary of Hospital Course: Patient was admitted to the psychiatry unit. Individual and group therapy provided. Patient was treated w/ Risperdal 4 mg PO Q12 and Depakote 500 mg PO HS. He continues to be delusional, paranoid, disorganized, internally preoccupied, talking to the TV and tangential. He submitted a 48 hr letter, was screened for involuntary psychiatric admission, was accepted and will be transferred for continued treatment and hospitalization. - Diagnosis (1) Schizophrenia Current Visit: Yes Status: Chronic - Final Diagnosis (DSM 5) Condition upon Discharge: SERIOUS DSM 5: Schizophrenia Disposition: Trans to Other Acute Care Hosp Follow-up Treatment Plan: Schizophrenia r/o schizoaffective disorder Patient was admitted to the psychiatry unit. Individual and group therapy provided. Patient was treated w/ Risperdal 4 mg PO Q12 and Depakote 500 mg PO HS. He continues to be delusional, paranoid, disorganized, internally preoccupied, talking to the TV and tangential. He submitted a 48 hr letter, was screened for involuntary psychiatric admission, was accepted and will be transferred for continued treatment and hospitalization. - Smoking Cessation Smoking Cessation Medication prescribed: Yes - Antipsychotic Medications Pt discharged on 2 or more routine antipsychotic medications: No
--- NOTE | 2018-03-22 13:28 | PCM.BM ---
Treatment Plan Problems - Problems identified on initial assessmt Medication nonadherence Date Initiated: 03/06/18 Time Initiated: 18:09 Assessment reference: HP, SW, NA Status: Active Auditory Hallucination Date Initiated: 03/06/18 Time Initiated: 18:10 Assessment reference: HP, SW, NA Status: Active Altered Thought Process Date Initiated: 03/06/18 Time Initiated: 18:12 Assessment reference: HP, SW, NA Status: Active Treatment assets and liabiliti Patient Assests: adapts well, cooperative (Patient is homeless), ADL independent (Patient is homeless) Patient Liabilities: financial problems, poor support system - Milieu Protocol Maintain good personal hygiene: daily Encourage regular showers, daily Remind patient to perform daily oral care, daily Assist patient to perform ADL's Conduct patient checks and document Observation sheet: Q15 minutes Maintain personal safety: every shift Educate patient to report safety concerns to staff, every shift Monitor environment for contraband/sharps Medication safety: Monitor for expected outcome, potential side effects: every shift, Assess barriers to learning: every shift, Assess readiness for medication education: every shift Milieu Narrative: Schizophrenia r/o schizoaffective disorder Patient was admitted to the psychiatry unit. Individual and group therapy provided. Patient was treated w/ Risperdal 4 mg PO Q12 and Depakote 500 mg PO HS. He continues to be delusional, paranoid, disorganized, internally preoccupied, talking to the TV and tangential. He submitted a 48 hr letter, was screened for involuntary psychiatric admission, was accepted and will be transferred for continued treatment and hospitalization. Family Contact Family involvement: Famliy/SO not involved Family contact: Patient agrees to contact, Family has been contacted by patient, Telephone contact initiated by staff Family contact name: Pt denied. - Goals for Treatment Patient goals for treatment: Pt is too floridly psychotic to participate in treatment planning and discharge. Pt did ask to be referred to group homes as he is currently homeless. Discharge/Continuing Care - Education Needs Education Needs: Patient Medication, Patient Diagnosis/Disease Process, Patient Coping Skills, Patient Community resources, Patient Aftercare Safety Plan - Discharge Discharge Criteria: Tolerates medication w/o severe side effects, Free of par anoid thoughts, Free of agitation, Reduction of target symptoms Discharge to:: [facility] - Treatment Team Participation Patient/Family/SO Statement: Schizophrenia r/o schizoaffective disorder Patient was admitted to the psychiatry unit. Individual and group therapy provided. Patient was treated w/ Risperdal 4 mg PO Q12 and Depakote 500 mg PO HS. He continues to be delusional, paranoid, disorganized, internally preoccupied, talking to the TV and tangential. He submitted a 48 hr letter, was screened for involuntary psychiatric admission, was accepted and will be transferred for continued treatment and hospitalization. Discussed with Family/SO: No Was Patient/Family/SO present at Treatment Team Meeting: Yes Treatment Plan Review - Problem Medication nonadherence Time Initiated: 18:09 Auditory Hallucination Time Initiated: 18:10 Altered Thought Process Time Initiated: 18:12 - Discharge / Continuing Care Discharge to:: Other Behavioral Health Services: Residential treatment Health Needs: Follow up care/test, Medications/Rx (Pt seen in treatment team for review on 03/22/18. Treatment team explained to pt that he is still awaiting a receiving bed at [facility] and will be transferred once a bed is available. Pt is agreeable to transport and offered no complaints or relelvant questions at this time. Pt remains tangential and disorganized. Pt wanted to ensure that [facility] will ensure that when he is discharged he will be able to be a "productive citizen of society." )
[2018-03-22 16:08] VITALS: BP 139/88; PULSE 73; RESP 18; TEMP 97.5
== END 2018-03-22 04:45 | DRG 750 ==
LOC: H.ER 09:33 → H.ERHOLD 14:06 → H.STEP 16:55
PROVIDERS: ADMIT Psychiatry & Neurology Psychiatry; ATTEND Psychiatry & Neurology Psychiatry
PROC: GZHZZZZ Group Psychotherapy (ICD-10-PCS; principal; 2018-03-06)
PROC: GZ58ZZZ Individual Psychotherapy, Cognitive-Behavioral (ICD-10-PCS; 2018-03-06)
DX: F20.0 Paranoid schizophrenia (principal); I10 Essential (primary) hypertension; L85.3 Xerosis cutis; F17.200 Nicotine dependence, unspecified, uncomplicated; Z59.0 Homelessness